=== PATIENT | male | born 1945 | race Caucasian/White ===

== ENCOUNTER 2019-04-09 12:23 | Emergency (ER) | payer MEDICARE, MEDICAID ==
[~2019-04-09] VITALS: Ht 170.2 cm; Wt 63.5 kg
[2019-04-09 12:29] VITALS: BP 157/104
--- NOTE | 2019-04-09 12:45 | NUR ---
THIS IS A 73 Y/O MALE THAT ARRIVES TO THE ED WITH PAINFUL URIANTION AND REPORTS SMALL CLOTS IN URINE OF BLOOD. PT REPORTS THAT HE HAS NOTICED THIS ABOUT 2 DAYS AGO. PT REPORTS THAT HE URINATES FREQUENTLY IN THE MORNING BUT IS NORMAL. PT REPORTS HAVING A PROSTATE EXAM LAST YEAR AND WAS NORMAL. PT SITTING IN CHAIR DOES NOT WANT TO LAY IN BED.
[2019-04-09 12:56] LABS: MICROSCOPIC AUTO
[2019-04-09 12:57] LABS: CULTURE INDICATED? YES
[2019-04-09 13:08] LABS: BASOPHILS # (AUTO) 0.06 x10^3/uL (0-0.1); BASOPHILS % (AUTO) 1 % (0-1); EOSINOPHILS # (AUTO) 0.16 x10^3/uL (0-0.4); EOSINOPHILS % (AUTO) 2 % (1-7); LYMPHOCYTES # (AUTO) 1.89 x10^3/uL (1-3.4); LYMPHOCYTES % (AUTO) 18 % (22-44); MD NO; MEAN CORPUSCULAR HEMOGLOBIN 32.5 pg (27.5-34.5); MEAN CORPUSCULAR HGB CONC 32.2 g/dL (33.2-36.2); MEAN CORPUSCULAR VOLUME 100.9 fL (81-97); MEAN PLATELET VOLUME 7.5 fL (7.4-10.4); MONOCYTES # (AUTO) 0.75 x10^3/uL (0.2-0.8); MONOCYTES % (AUTO) 7 % (2-9); NEUTROPHILS # (AUTO) 7.56 x10^3/uL (1.8-6.8); NEUTROPHILS % (AUTO) 73 % (42-75); PLATELET COUNT 240 x10^3/uL (130-400); RED CELL DISTRIBUTION WIDTH 14.1 % (9.4-14.8)
[2019-04-09 13:19] LABS: ANION GAP 8 mmol/L (5-15); CALCIUM 9.3 mg/dL (8.5-10.1); CHLORIDE 106 mmol/L (98-107); CREATININE 0.93 mg/dL (0.7-1.3)
--- NOTE | 2019-04-09 14:23 | NUR ---
Patient/Caregiver given discharge instructions and they have confirmed that they understand the instructions. Patient ambulatory with steady gait.
== END 2019-04-09 14:25 | disposition home or self-care (01) ==
LOC: ED 14:04
DX: N30.01 Acute cystitis with hematuria (principal); I10 Essential (primary) hypertension
CPT/HCPCS: 36415; 80048; 81001; 82040; 85025; 87086; 99283

== ENCOUNTER 2019-11-04 09:00 | Emergency (ER) | payer MEDICARE, MEDICAID ==
[~2019-11-04] VITALS: Ht 170.2 cm; Wt 65.6 kg
--- NOTE | 2019-11-04 09:54 | NUR ---
pt amb to room with steady gait.
[2019-11-04] MEDS ORDERED: FAMOTIDINE 20 MG TABLET PO ONE (10:00)
[2019-11-04] MEDS ORDERED: MAALOX/HYOSCYAMINE/LIDOCAINE 45 ML BTL PO ONE (10:00)
[2019-11-04] MEDS ORDERED: LISI-167 PO (10:05)
[2019-11-04] MEDS ORDERED: ATOR-2 PO (10:05)
[2019-11-04] MEDS ORDERED: TAMS-11 PO (10:05)
--- NOTE | 2019-11-04 10:05 | NUR ---
PT TO ED FOR HEARTBURN WITH NO RELIEF FROM TUMS X4-5 DAYS. PT STATES PAIN IN EPIGASTRIC ABD AREA WITH NO RAD AND NO RELIEVEING/AGGRAVATING FACTORS. PT CONNECTED TO ALL MONITORS. VSS. THEO TELLEZ TO BS FOR ASSESSMENT. AWIAITNG ORDERS.
[2019-11-04] MEDS ORDERED: MAALOX/HYOSCYAMINE/LIDOCAINE 45 ML BTL ONE (10:15)
[2019-11-04] MEDS ORDERED: FAMOTIDINE 20 MG TABLET ONE (10:15)
[2019-11-04 10:52] LABS: BASOPHILS # (AUTO) 0.04 x10^3/uL (0-0.1); BASOPHILS % (AUTO) 1 % (0-1); EOSINOPHILS # (AUTO) 0.17 x10^3/uL (0-0.4); EOSINOPHILS % (AUTO) 2 % (1-7); LYMPHOCYTES # (AUTO) 1.81 x10^3/uL (1-3.4); LYMPHOCYTES % (AUTO) 22 % (22-44); MD NO; MEAN CORPUSCULAR HEMOGLOBIN 33.4 pg (27.5-34.5); MEAN CORPUSCULAR HGB CONC 33.3 g/dL (33.2-36.2); MEAN CORPUSCULAR VOLUME 100.2 fL (81-97); MEAN PLATELET VOLUME 7.7 fL (7.4-10.4); MONOCYTES # (AUTO) 0.59 x10^3/uL (0.2-0.8); MONOCYTES % (AUTO) 7 % (2-9); NEUTROPHILS # (AUTO) 5.47 x10^3/uL (1.8-6.8); NEUTROPHILS % (AUTO) 68 % (42-75); PLATELET COUNT 230 x10^3/uL (130-400); RED BLOOD COUNT 4.45 x10^6/uL (4.38-5.82)
[2019-11-04 11:02] LABS: ALANINE AMINOTRANSFERASE 20 U/L (12-78); ALBUMIN 3.5 g/dL (3.4-5.0); ANION GAP 9 mmol/L (5-15); CHLORIDE 105 mmol/L (98-107); CREATININE 0.85 mg/dL (0.7-1.3)
[2019-11-04 11:07] LABS: ALKALINE PHOSPHATASE 73 U/L (45-117); BILIRUBIN,TOTAL 0.3 mg/dL (0.2-1.0); TOTAL PROTEIN 7.5 g/dL (6.4-8.2); TROPONIN I < 0.015 ng/mL (0.000-0.045)
[2019-11-04 11:19] VITALS: BP 114/62
--- NOTE | 2019-11-04 11:19 | NUR ---
PT RESTING IN ROOM. VSS. NO NEEDS EXPRESSED. [facility]. ALL RESULTS BACK AT THIS TIME. CHART UP FOR RECHECK.
--- NOTE | 2019-11-04 11:55 | NUR ---
THEO Najera to bs to update on reults and poc. awaiting dispo.
== END 2019-11-04 12:39 | disposition home or self-care (01) ==
LOC: ED 11:26
DX: K29.00 Acute gastritis without bleeding (principal); I10 Essential (primary) hypertension; E78.5 Hyperlipidemia, unspecified
CPT/HCPCS: 36415; 71045; 80053; 83690; 84484; 85025; 93005; 99284

== ENCOUNTER 2019-12-18 07:45 | Outpatient (CLI) | payer MEDICARE, MEDICAID ==
[~2019-12-18 07:45] MED LIST: ATOR-2 PO; LISI-167 PO; TAMS-11 PO
== END 2019-12-18 23:59 | disposition home or self-care (01) ==
LOC: CARD 07:45
PROVIDERS: ATTEND Physician Assistant
DX: I10 Essential (primary) hypertension (principal); R10.13 Epigastric pain; I45.2 Bifascicular block; Z72.0 Tobacco use
CPT/HCPCS: 93017

== ENCOUNTER 2020-02-18 09:09 | Outpatient (CLI) | payer MEDICARE, MEDICAID | END 2020-02-18 23:59 | disposition home or self-care (01) | LOC: CFH 09:09 | PROVIDERS: ATTEND Internal Medicine Cardiovascular Disease | DX: R94.31 Abnormal electrocardiogram [ECG] [EKG] (principal); I10 Essential (primary) hypertension | CPT/HCPCS: 93306 ==

== ENCOUNTER 2020-09-19 10:20 | Emergency (ER) | payer MEDICARE, MEDICAID ==
[~2020-09-19] VITALS: Ht 170.2 cm; Wt 67.5 kg
--- NOTE | 2020-09-19 10:58 | NUR ---
PT STATES HE WOKE UP THREE DAYS AGO AND HIS SHOULDER WAS ACHING "I THOUGHT I PULLED A MUSCLE, I HAD BEEN DOING YARD WORK" PT DENIES CP/SOB. PT TO BP, CONT PULSE OX, [facility]
[2020-09-19] MEDS ORDERED: ASPIRIN 81 MG TABLET CHEW PO ONE (11:00)
[2020-09-19] MEDS ORDERED: ASPIRIN 81 MG TABLET CHEW ONE (11:01)
[2020-09-19 11:29] LABS: BASOPHILS % (AUTO) 1 % (0-1); EOSINOPHILS % (AUTO) 1 % (1-7); LYMPHOCYTES % (AUTO) 20 % (22-44); MEAN CORPUSCULAR HEMOGLOBIN 32.5 pg (27.5-34.5); MEAN PLATELET VOLUME 7.2 fL (7.4-10.4); MONOCYTES % (AUTO) 8 % (2-9); NEUTROPHILS % (AUTO) 70 % (42-75); PLATELET COUNT 212 x10^3/uL (130-400); RED BLOOD COUNT 4.55 x10^6/uL (4.38-5.82); RED CELL DISTRIBUTION WIDTH 13.6 % (9.4-14.8)
[2020-09-19 11:33] LABS: MD NO
[2020-09-19 11:40] LABS: ALBUMIN 3.9 g/dL (3.4-5.0); ANION GAP 3 mmol/L (5-15); CHLORIDE 106 mmol/L (98-107); CREATININE 0.89 mg/dL (0.7-1.3)
[2020-09-19 11:44] LABS: TROPONIN I < 0.015 ng/mL (0.000-0.045)
[2020-09-19 12:09] VITALS: BP 140/73
--- NOTE | 2020-09-19 13:23 | NUR ---
PT TOOK HIMSELF OFF MONITORS, STATES ARM STILL HURTS BUT WOULD LIKE TO GO HOME. PT PLACED FOR RECHECK
== END 2020-09-19 13:51 | disposition home or self-care (01) ==
LOC: ED 11:27
DX: S46.911A Strain of unspecified muscle, fascia and tendon at shoulder and upper arm level, right arm, initial encounter (principal); I45.10 Unspecified right bundle-branch block; R07.9 Chest pain, unspecified; I10 Essential (primary) hypertension; F17.200 Nicotine dependence, unspecified, uncomplicated; X58.XXXA Exposure to other specified factors, initial encounter; Y93.89 Activity, other specified; Y92.89 Other specified places as the place of occurrence of the external cause; Y99.8 Other external cause status
CPT/HCPCS: 36415; 71045; 80048; 82040; 83880; 84484; 85025; 93005; 99285